=== PATIENT | male | born 1950 | race Hispanic/Latino ===

== ENCOUNTER → 2025-06-27 | Outpatient (CLI) | payer OTHER ==
--- NOTE | 2025-06-28 11:28 | HMCIMG ---
EXAM: CT Cardiac calcium scoring. CLINICAL HISTORY: Screening. TECHNIQUE: Thin collimated axial CT cardiac images were obtained. A CT scan is done according to ALARA (As Low As Reasonably Achievable). CONTRAST: None. COMPARISON: None provided. FINDINGS: Calcium Score: VESSEL Number of lesions Volume mm3 Equi. Mass/mg Calcium score LM 1 396.1 - 489.8 LAD 8 1008.9 - 1337.4 LCX 13 181.9 - 236.3 RCA 12 1079.8 - 1393.8 Total 34 2666.7 - 3457.3 IMPRESSION: The total calcium score is 3457.3. 94th percentile. /[place]
== END | disposition home or self-care (01) ==
LOC: RAH 12:48
PROVIDERS: ATTEND Internal Medicine Cardiovascular Disease
DX: Z13.6 Encounter for screening for cardiovascular disorders (principal)
CPT/HCPCS: 75571